=== PATIENT | male | born 1955 | race Caucasian/White ===

== ENCOUNTER → 2021-07-16 11:15 | Outpatient (CLI) | payer MEDICARE, OTHER, SELFPAY ==
[2021-07-16 12:53] LABS: COVID19 -Nasal RAPID Negative (Negative)
== END ==
PROVIDERS: Family Provider Family Medicine; PCP Physician Assistant Medical; Visit Provider Physical Medicine & Rehabilitation
DX: Z20.822 Contact with and (suspected) exposure to COVID-19 (principal)
CPT/HCPCS: 87635; C9803

== ENCOUNTER 2021-07-17 12:57 | Outpatient (CLI) | payer MEDICARE, OTHER, SELFPAY ==
[2021-07-17] VITALS (7 sets, daily range): BP systolic 106–129; BP diastolic 64–92; PULSE 81–127; RESP 15–20; O2SAT 95–99
--- NOTE | 2021-07-17 13:02 | DI.RAD.S_ITS ---
PROCEDURE: PAIN L INTERLAMINAR/CAUDAL INJ INDICATIONS: SPONDYLOSIS COMPARISON: [facility], [facility], MRI L-SPINE W/O CONTRAST, 06/18/2021, 15:26. FINDINGS: Fluoroscopic spot filming was performed to verify placement of a spinal needle at the L5-S1 level, as labeled on the films. Appropriate location of the needle tip was confirmed by injection of iodinated contrast. IMPRESSION: No significant intraprocedural abnormality. Dictated by: Kentrell Perez M.D. on 07/17/2021 at 13:48 Approved by: Kentrell Perez M.D. on 07/17/2021 at 13:48
[2021-07-17] MEDS: MIDAZOLAM 2 MG/2 ML VIAL IV (13:52)
[2021-07-17] MEDS: IOPAMIDOL 15 ML VIAL 3 ML INJ (13:57)
[2021-07-17] MEDS: BUPIVACAINE 0.25% (PF) VIAL 2 ML INJ (13:57)
[2021-07-17] MEDS: BETAMETHASONE 30 MG/5 ML MDV 6 MG INJ (13:58)
[2021-07-17] MEDS: DEXAMETHASONE 10 MG/ML VIAL 20 MG INJ (13:58)
--- NOTE | 2021-07-17 14:03 | PM.PROC.IR.1 ---
Date/Time/Diagnoses Date of procedure: 07/17/21 Time of procedure: 14:03 Pre-procedure diagnosis: 1. HNP WITH RADICULAR FEATURES, 2. MULTILEVEL CENTRAL STENOSIS, Post-procedure diagnosis: same Procedure Notes Procedure: 1. FLUOROSCOPICALLY GUIDED CONTRAST CONTROLLED INTERLAMINAR EPIDURAL STEROID INJECTION - L5/S1 Indications: The patient is referred by for treatment of Bilateral Foraminal Stenosis L>R LE symptoms. Physician: Edward Granados Total Fluoroscopy time (seconds): 5 Total sedation minutes: 8 Complications: none Procedure in detail & Post-procedure care: FINDINGS Multilevel Central Spinal Stenosis with Nerve Root Compression DESCRIPTION OF PROCEDURE Fluoroscopically guided, contrast-controlled L5/S1 translaminar epidural steroid injection. Following review of allergy and review of potential side effects and complications, including, but not necessarily limited to, infection, allergic reaction, local tissue breakdown, temporary as well as permanent nerve injury, paralysis, stroke and possible , the patient indicated that the patient understood and agreed to proceed. An informed consent document was signed by the patient, witnessed by a nurse, and placed in the patient's chart. Additionally, other treatment options including modalities, medications, and physical therapy were reviewed with the patient. After review of previous anaesthesic history and IV conscious sedation the patient was deemed safe to proceed with today?s procedure with IV conscious sedation as ASA class II designation. Safety time-out was performed to confirm patient ID, procedure to be performed and site of procedure. IV sedation was accomplished with a combination of 2mg of Versed administered by the RN after DO order, titrated to patient comfort during the course of the procedure while the patient remained responsive to all verbal commands. In the prone position, following sterile prep and drape of the lumbar region, the L5/S1 translaminar space was identified fluoroscopically. The skin was anesthetized via a 25-gauge, 1.5-inch needle with 1% lidocaine solution. At this point, a 22-gauge short bevel spinal needle was atraumatically introduced and advanced under fluoroscopic guidance into the region of the L5/S1 translaminar space. Depth was confirmed on lateral view. Radiological data, including multiple fluoroscopic views of the lumbar spine, reveal a spinal needle at the L5/S1 translaminar space. Lateral views then show placement of the needle in the epidural space. Subsequent views show contrast material flowing superiorly and inferiorly in the epidural space. No vascular or intrathecal uptake is observed. At this point, using loss of resistance technique with saline and air, the epidural space was entered. This was confirmed following negative aspiration with injection of approximately 1.5cc of Isovue 200, showing excellent epidural flow without vascular or intrathecal uptake. At this point, 1 cc of 1% lidocaine solution combined with 3cc or 20mg of dexamethasone and 6mg of betamethasone was injected without incident. The patent tolerated the procedure without signs of symptoms of complications prior to transfer to the recovery area for further monitoring. The patient was then transferred to the recovery area where they were observed for an appropriate period of time after the injection. The patient reported a VAS score of 6 prior to the procedure and a post-procedure VAS of 0. POST OP INSTRUCTIONS The patient was provided a Pain Log to continue to record their response to the target-specific procedure prior to follow-up visit with their referring physician. Additionally, specific post-injection care instructions and a contact number to our office were provided if concerns arise regarding possible complications associated with the procedure are suspected.
--- NOTE | 2021-07-17 14:12 | PC.NURSE ---
Patient noted to be in a Rapid Afib upon pre-sedation vital signs. HR variable 103-141 non sustaining. Patient denies symptoms besides having a headache which he reports he experiences with rapid Afib. BP stable. Denies CP/SOB. Dr. Granados made aware. Patient reports he is out of his Metoprolol and that it is supposed to arrive by mail today. Patient HR during procedure down to 93-135. BP remained stable and patient without complaints. Care given over to GISSELL Arnold in pre-post with patient in NAD. Patient advised to take his regularly prescribed metoprolol once he gets home and to seek further care if it does not arrive or if his symptoms progress. Patient verbalized understanding.
--- NOTE | 2021-07-17 16:45 | PC.NURSE ---
Pt went into rapid afib in the procedure room. Dr. Granados aware. New onset of afib, pt states no prior diagnosis. Pt vitals stable otherwise, refer to worklist. Pt has been diagnosed with PVC's before but did not take his metoprolol this morning. Explained risks of afib and give information to his prior to discharge. Discharge was confirmed by Dr. Granados for pt to go home. Pt has an appt with primary care already scheduled for this Friday. Informed pt to go to the ER if condition changes and to take his regularly scheduled metoprolol when he gets home.
== END 2021-07-17 14:35 | disposition home or self-care (01) ==
PROVIDERS: Family Provider Family Medicine; PCP Physician Assistant Medical; Referring Provider Physical Medicine & Rehabilitation; Visit Provider Physical Medicine & Rehabilitation
DX: M51.17 Intervertebral disc disorders with radiculopathy, lumbosacral region (principal); M48.07 Spinal stenosis, lumbosacral region
CPT/HCPCS: 62323; J0702; J1100; J2250

== ENCOUNTER → 2021-11-12 13:03 | Outpatient (CLI) | payer MEDICARE, OTHER, SELFPAY ==
[2021-11-12 16:39] LABS: COVID19 -Nasal RAPID Negative (Negative)
== END ==
PROVIDERS: Family Provider Family Medicine; PCP Physician Assistant Medical; Visit Provider Physical Medicine & Rehabilitation
DX: Z20.822 Contact with and (suspected) exposure to COVID-19 (principal)
CPT/HCPCS: 87635; C9803

== ENCOUNTER 2021-11-13 15:00 | Outpatient (CLI) | payer MEDICARE, OTHER, SELFPAY ==
[2021-11-13] VITALS (7 sets, daily range): BP systolic 89–120; BP diastolic 50–77; PULSE 61–77; RESP 10–18; TEMP 36.3; O2SAT 93–98
--- NOTE | 2021-11-13 15:01 | DI.RAD.S_ITS ---
PROCEDURE: PAIN L/S TRANSFORAMINAL INJECT INDICATIONS: SPONDYLOSIS COMPARISON: [facility], CR, XR LUMBAR SPINE WITH OLBIQUES PLUS FLEXION EXTENSION, 06/19/2020, 16:26. [facility], [facility], MRI L-SPINE W/O CONTRAST, 06/18/2021, 15:26. FINDINGS: Fluoroscopic spot filming was performed to verify placement of spinal needles at the L5-S1 level(s), as labeled on the films. Appropriate location(s) of the needle tip(s) was confirmed by injection of iodinated contrast. IMPRESSION: Fluoroscopy for pain management. Dictated by: Edwin Justin M.D. on 11/13/2021 at 17:20 Approved by: Edwin Justin M.D. on 11/13/2021 at 17:21
[2021-11-13] MEDS: MIDAZOLAM 2 MG/2 ML VIAL IV (15:58)
[2021-11-13] MEDS: IOPAMIDOL 15 ML VIAL 3 ML INJ (16:01)
[2021-11-13] MEDS: BUPIVACAINE 0.25% (PF) VIAL 2 ML INJ (16:01)
[2021-11-13] MEDS: BETAMETHASONE 30 MG/5 ML MDV 6 MG INJ (16:02)
[2021-11-13] MEDS: DEXAMETHASONE 10 MG/ML VIAL 20 MG INJ (16:02)
--- NOTE | 2021-11-13 16:19 | P.PCN_ITS ---
Date/Time/Diagnoses Date of procedure: 11/13/21 Time of procedure: 16:19 Pre-procedure diagnosis: FORAMINAL STENOSIS WITH LE SYMPTOMS Post-procedure diagnosis: same Procedure Notes Procedure: 1. FLUOROSCOPICALLY GUIDED CONTRAST CONTROLLED TRANSFORAMINAL EPIDURAL STEROID INJECTION - RIGHT L5/S1 TFESI Indications: Derrick is referred by RACHEL Solitario for treatment of Foraminal Stenosis with Right LE Symptoms Physician: Edward Granados Total Fluoroscopy time (seconds): 17 Total sedation minutes: 14 Complications: none Procedure in detail & Post-procedure care: FINDINGS Foraminal Nerve Root Compression secondary to disc disease and facet hypertrophy DESCRIPTION OF PROCEDURE Following review of allergy and review of potential side effects and complications, including, but not necessarily limited to, infection, allergic re action, local tissue breakdown, stroke, temporary or permanent nerve injury, paralysis, and possible , the patient indicated that the patient understood and agreed to proceed. An informed consent document was signed by the patient, witnessed by a nurse, and placed in the patient's chart. Additionally, other treatment options including medications, modalities, and physical therapy were reviewed with the patient. After review of previous anaesthesic history and IV conscious sedation the patient was deemed safe to proceed with today?s procedure with IV conscious sedation as ASA class II designation. Safety time-out was performed to confirm patient ID, procedure to be performed and site of procedure. IV sedation was accomplished with a combination of 2mg of Versed was administered by the RN after DO order, titrated to patient comfort during the course of the procedure while the patient remained responsive to all verbal commands In the prone position following sterile prep and drape of the lumbar region, the right L5/S1 posterior neuroforamen was identified fluoroscopically. The skin was anesthetized via a 25-gauge 1.5-inch needle with 1% lidocaine solution. At this point, a 25-gauge 3.5-inch spinal needle was atraumatically introduced and advanced under fluoroscopic guidance through the posterior right L5/S1 neuroforamen to approximately the anterior aspect of the canal. Depth was confirmed on lateral view. Following negative aspiration, injection of approximately 1.5cc of Isovue 200 under live fluoroscopy in the AP view confirmed excellent flow along the nerve root, into the epidural space without vascular or intrathecal uptake observed Radiological data, including multiple fluoroscopic views of the lumbosacral spine, reveal a spinal needle at the right L5/S1 posterior neuroforamen. Subsequent views show flow of contrast material flowing superiorly and inferiorly along the nerve root confirming epidural flow. Subsequently, a test dose of 1.5 cc of 1% lidocaine solution was administered and patient was observed for two minutes for signs or symptoms of complications, including abdominal pain, shortness of breath, bilateral upper or lower extrem ity weakness, nausea and vomiting, prior to steroid injection. At this point, a total of 3cc or 20mg of dexamethasone and 6mg of betamethasone was injected without incident. The procedure tolerated the procedure well without signs or symptoms of complications prior to transfer to the recovery area continued monitoring without incident. The patient was then transferred to the recovery area where they were observed for an appropriate time after the injection. The patient reported a VAS score of 7 prior to the procedure and a post- procedure VAS of 0. POST OP INSTRUCTIONS The patient was provided a Pain Log to continue to record their response to the target-specific procedure prior to follow-up visit with their referring physician. Additionally, specific post-injection care instructions and a contact number to our office were provided if concerns arise regarding possible complications associated with the procedure are suspected.
== END 2021-11-13 16:34 | disposition home or self-care (01) ==
PROVIDERS: Family Provider Family Medicine; PCP Physician Assistant Medical; Referring Provider Physical Medicine & Rehabilitation; Visit Provider Physical Medicine & Rehabilitation
DX: M48.07 Spinal stenosis, lumbosacral region; M51.17 Intervertebral disc disorders with radiculopathy, lumbosacral region
CPT/HCPCS: 64483; 99152; J0702; J1100; J2250; J3490

== ENCOUNTER → 2022-09-04 13:00 | Outpatient (CLI) | payer MEDICARE, OTHER, SELFPAY ==
--- NOTE | 2022-09-04 13:02 | DI.RAD.S_ITS ---
PROCEDURE: XR KNEE RT 3V INDICATIONS: knee replacement with pain TECHNIQUE: 3 views of the knee were acquired. COMPARISON: None. FINDINGS: Bones: No fractures or dislocations. No suspicious bony lesions. Expected postoperative appearance of a unicompartmental tibiofemoral arthroplasty. Soft tissues: No joint effusion. No suspicious soft tissue calcifications. IMPRESSION: Expected postoperative appearance of a unicompartmental tibiofemoral arthroplasty. Dictated by: Asher Quevedo M.D. on 09/04/2022 at 14:04 Approved by: Asher Quevedo M.D. on 09/04/2022 at 14:04
--- NOTE | 2022-09-04 13:02 | DI.RAD.S_ITS ---
PROCEDURE: XR KNEE LT 3V INDICATIONS: knee replacement with pain TECHNIQUE: 3 views of the knee were acquired. COMPARISON: None. FINDINGS: Bones: No fractures or dislocations. No suspicious bony lesions. Well-aligned, intact arthroplasty without hardware complication. Soft tissues: No joint effusion. No suspicious soft tissue calcifications. IMPRESSION: Well-aligned, intact left total knee arthroplasty without hardware complication. Dictated by: Asher Quevedo M.D. on 09/04/2022 at 14:04 Approved by: Asher Quevedo M.D. on 09/04/2022 at 14:05
== END ==
PROVIDERS: Family Provider Family Medicine; PCP Physician Assistant Medical; Referring Provider Physical Medicine & Rehabilitation; Visit Provider Physical Medicine & Rehabilitation
DX: M25.561 Pain in right knee (principal); M25.562 Pain in left knee; I48.20 Chronic atrial fibrillation, unspecified; G43.719 Chronic migraine without aura, intractable, without status migrainosus; G44.021 Chronic cluster headache, intractable; M51.27 Other intervertebral disc displacement, lumbosacral region; M47.816 Spondylosis without myelopathy or radiculopathy, lumbar region; Z96.653 Presence of artificial knee joint, bilateral; Z95.5 Presence of coronary angioplasty implant and graft; Z79.01 Long term (current) use of anticoagulants
CPT/HCPCS: 73562; 99215

== ENCOUNTER 2022-09-17 13:10 | Outpatient (CLI) | payer MEDICARE, OTHER, SELFPAY ==
[2022-09-17] VITALS (8 sets, daily range): BP systolic 104–139; BP diastolic 62–98; PULSE 72–109; RESP 14–18; TEMP 36.3; O2SAT 93–96
--- NOTE | 2022-09-17 13:15 | DI.RAD.S_ITS ---
PROCEDURE: PAIN L/S TRANSFORAMINAL INJECT INDICATIONS: SPONDYLOSIS COMPARISON: [facility], , PAIN L/S TRANSFORAMINAL INJECT, 11/13/2021, 16:01. FINDINGS: Fluoroscopic spot filming was performed to verify placement of spinal needles at the right L5-S1 neural foramen level(s), as labeled on the films. Appropriate location(s) of the needle tip(s) was confirmed by injection of iodinated contrast. IMPRESSION: Access needle at the right L5-S1 neural foramen for transforaminal epidural steroid injection. Dictated by: Ileana Rodríguez MD, PhD on 09/17/2022 at 15:01 Approved by: Ileana Rodríguez MD, PhD on 09/17/2022 at 15:02
[2022-09-17] MEDS: MIDAZOLAM 2 MG/2 ML VIAL IV (14:05)
[2022-09-17] MEDS: IOPAMIDOL 15 ML VIAL 3 ML INJ (14:14)
[2022-09-17] MEDS: DEXAMETHASONE 10 MG/ML VIAL 20 MG INJ (14:14)
[2022-09-17] MEDS: BETAMETHASONE 30 MG/5 ML MDV 6 MG INJ (14:14)
[2022-09-17] MEDS: BUPIVACAINE 0.25% (PF) VIAL 2 ML SUBCUT (14:14)
--- NOTE | 2022-09-17 14:25 | P.PCN_ITS ---
Date/Time/Diagnoses Date of procedure: 09/17/22 Time of procedure: 14:25 Pre-procedure diagnosis: FORAMINAL STENOSIS WITH LE SYMPTOMS Post-procedure diagnosis: same Procedure Notes Procedure: 1. FLUOROSCOPICALLY GUIDED CONTRAST CONTROLLED TRANSFORAMINAL EPIDURAL STEROID INJECTION - RIGHT L5/S1 TFESI Indications: Derrick is referred by ANDRE Solitario for treatment of Foraminal Stenosis with Right LE Symptoms Physician: Edward Granados Total Fluoroscopy time (seconds): 16 Total sedation minutes: 15 Complications: none Procedure in detail & Post-procedure care: FINDINGS Foraminal Nerve Root Compression secondary to disc disease and facet hypertrophy DESCRIPTION OF PROCEDURE Following review of allergy and review of potential side effects and complications, including, but not necessarily limited to, infection, allergic r eaction, local tissue breakdown, stroke, temporary or permanent nerve injury, paralysis, and possible , the patient indicated that the patient understood and agreed to proceed. An informed consent document was signed by the patient, witnessed by a nurse, and placed in the patient's chart. Additionally, other treatment options including medications, modalities, and physical therapy were reviewed with the patient. After review of previous anaesthesic history and IV conscious sedation the patient was deemed safe to proceed with today?s procedure with IV conscious sedation as ASA class II designation. Safety time-out was performed to confirm patient ID, procedure to be performed and site of procedure. IV sedation was accomplished with a combination of 2mg of Versed was administered by the RN after DO order, titrated to patient comfort during the course of the procedure while the patient remained responsive to all verbal commands In the prone position following sterile prep and drape of the lumbar region, the right L5/S1 posterior neuroforamen was identified fluoroscopically. The skin was anesthetized via a 25-gauge 1.5-inch needle with 1% lidocaine solution. At this point, a 25-gauge 3.5-inch spinal needle was atraumatically introduced and advanced under fluoroscopic guidance through the posterior right L5/S1 neuroforamen to approximately the anterior aspect of the canal. Depth was confirmed on lateral view. Following negative aspiration, injection of approximately 1.5cc of Isovue 200 under live fluoroscopy in the AP view confirmed excellent flow along the nerve root, into the epidural space without vascular or intrathecal uptake observed Radiological data, including multiple fluoroscopic views of the lumbosacral spine, reveal a spinal needle at the right L5/S1 posterior neuroforamen. Subsequent views show flow of contrast material flowing superiorly and inferiorly along the nerve root confirming epidural flow. Subsequently, a test dose of 1.5 cc of 1% lidocaine solution was administered and patient was observed for two minutes for signs or symptoms of complications, including abdominal pain, shortness of breath, bilateral upper or lower extre mity weakness, nausea and vomiting, prior to steroid injection. At this point, a total of 3cc or 20mg of dexamethasone and 6mg of betamethasone was injected without incident. The procedure tolerated the procedure well without signs or symptoms of complications prior to transfer to the recovery area continued monitoring without incident. The patient was then transferred to the recovery area where they were observed for an appropriate time after the injection. The patient reported a VAS score of 7 prior to the procedure and a post- procedure VAS of 0. POST OP INSTRUCTIONS The patient was provided a Pain Log to continue to record their response to the target-specific procedure prior to follow-up visit with their referring physician. Additionally, specific post-injection care instructions and a contact number to our office were provided if concerns arise regarding possible complications associated with the procedure are suspected.
== END 2022-09-17 14:45 | disposition home or self-care (01) ==
PROVIDERS: Family Provider Family Medicine; PCP Physician Assistant Medical; Referring Provider Physical Medicine & Rehabilitation; Visit Provider Physical Medicine & Rehabilitation
DX: M48.07 Spinal stenosis, lumbosacral region (principal); M51.17 Intervertebral disc disorders with radiculopathy, lumbosacral region; M47.27 Other spondylosis with radiculopathy, lumbosacral region
CPT/HCPCS: 64483; 99152; J0702; J1100; J2250; J3490

== ENCOUNTER 2022-12-24 09:09 | Outpatient (CLI) | payer MEDICARE, OTHER, SELFPAY ==
[2022-12-24] VITALS (9 sets, daily range): BP systolic 112–154; BP diastolic 56–100; PULSE 59–126; RESP 10–20; TEMP 36.2; O2SAT 94–97
--- NOTE | 2022-12-24 09:11 | DI.RAD.S_ITS ---
PROCEDURE: PAIN GENICULAR NERVE BLOCK LT INDICATIONS: LEFT KNEE PAIN COMPARISON: None. FINDINGS: Fluoroscopic spot filming was performed to verify placement of spinal needles at the lateral and medial left knee level(s), as labeled on the films. Appropriate location(s) of the needle tip(s) was confirmed by injection of iodinated contrast. IMPRESSION: Access needles positioned for left knee genicular nerve block. Dictated by: Ileana Rodríguez MD, PhD on 12/24/2022 at 13:19 Approved by: Ileana Rodríguez MD, PhD on 12/24/2022 at 13:20
[2022-12-24] MEDS: MIDAZOLAM 2 MG/2 ML VIAL IV (10:31)
[2022-12-24] MEDS: LIDOCAINE 1% 20 ML 5 ML INJ (10:37)
[2022-12-24] MEDS: BUPIVACAINE 0.5% (PF) 10 ML VIAL 5 ML INJ (10:38)
[2022-12-24] MEDS: iopamidoL 15 ML VIAL 3 ML INJ (10:38)
--- NOTE | 2022-12-24 10:51 | P.PCN_ITS ---
Date/Time/Diagnoses Date of procedure: 12/24/22 Time of procedure: 10:51 Pre-procedure diagnosis: 1. Chronic knee pain Post-procedure diagnosis: same Procedure Notes Procedure: 1. Geniculate nerve blocks including superior lateral and medial as well as inferior medial nerve blocks Indications: Derrick is referred by ANDRE Solitario for treatment of chronic knee pain. Physician: Edward Granados Total Fluoroscopy time (seconds): 13 Total sedation minutes: 15 Complications: none Procedure in detail & Post-procedure care: DESCRIPTION OF PROCEDURE Fluoroscopically guided, contrast-controlled superior lateral, superior medial and inferior medial geniculate blocks with 2cc of 0.5% Marcaine. Following review of allergy and review of potential side effects and complications, including, but not necessarily limited to, infection, allergic reaction, local tissue breakdown, nerve injury, paralysis, stroke and possible , the patient indicated that the patient understood and agreed to proceed. An informed consent document was signed by the patient, witnessed by a nurse, and placed in the patient's chart. After review of previous anaesthesic history and IV conscious sedation the patient was deemed safe to proceed with today?s procedure with IV conscious sedation as ASA class II designation. Safety time-out was performed to confirm patient ID, procedure to be performed and site of procedure. IV sedation was accomplished with a combination of 3mg of Versed was administered by the RN after DO order, titrated to patient comfort during the course of the procedure while the patient remained responsive to all verbal commands A time-out was taken to identify the correct patient, procedure and side prior to starting the procedure. With the patient lying in the supine position, the patient was prepped and draped in usual sterile fashion using chlorhexadine scrub and a fenestrated drape. Local anesthetic was given by raising a skin wheal and going down to the hub of a 25 gauge 1/2 inch needle. In an AP fluoroscopic view, a 20 gauge needle with was introduced through the anesthetic skin and down to the junction of the femoral diaphysis and the medial femoral condyle, then another needle to the femoral diaphysis on the lateral femoral condyle and the 3rd medial to the tibial diaphysis and the medial tibial condyle. Place of the of all 3 needles was confirmed with lateral fluoroscopic view. After negative aspirate to make sure there was no intravascular placement, trace contrast was infiltrated to confirm neurogram as well as lack of vascular uptake. After placement, 2mL of 0.5% Marcaine was injected slowly and each of the 3 sites without incident. The needle was withdrawn and sites cleaned and dressed. The patient tolerated the procedure well without signs or symptoms of complications. The patient tolerated the procedure well without signs or symptoms of complications prior to transfer to the recovery area continued monitoring without incident. Post-procedure, the patient was monitored initiating provocative activities to measure the amount of relief from her chronic knee pain. The patient reported a VAS of 7 prior to the procedure and a post-procedure VAS of 1. POST OP INSTRUCTIONS The patient was provided with a Pain Log to complete over the next several hours and subsequent days prior to the patient's follow up with the ordering physician. If the patient has mobile mechanic relief to the solution applied, then they may be a candidate for geniculate nerve radiofrequency ablation. The patient is aware, was provided, once again, with a Pain Log and will follow up with the referring physician for review and clinical correlation.
== END 2022-12-24 11:05 | disposition home or self-care (01) ==
LOC: RAD 09:10
PROVIDERS: Family Provider Family Medicine; PCP Physician Assistant Medical; Referring Provider Physical Medicine & Rehabilitation; Visit Provider Physical Medicine & Rehabilitation
DX: M25.562 Pain in left knee (principal); G89.29 Other chronic pain
CPT/HCPCS: 64454; 99152; J2250

== ENCOUNTER → 2023-08-06 13:40 | Outpatient (CLI) | payer MEDICARE, OTHER, SELFPAY ==
--- NOTE | 2023-08-06 13:41 | DI.RAD.S_ITS ---
PROCEDURE: XR LUMBAR SPINE MIN 4V INDICATIONS: BACK PAIN TECHNIQUE: 5 views of the lumbar spine were acquired, including bilateral oblique views. COMPARISON: None. FINDINGS: Bones: 5 nonrib-bearing vertebrae are present. There is normal bony alignment. There is multilevel facet arthropathy, worse at L4-5 and L5-S1. Multilevel disc height loss with degenerative endplate changes and spurring is present. This is severe at L5-S1. No vertebral body compression fractures. No suspicious bony lesions. Soft tissues: Overlying bowel gas pattern is normal. No suspicious soft tissue calcifications. Atherosclerotic vascular calcifications. Oblique images: No pars defects. IMPRESSION: Severe degenerative changes at L5-S1, mild degenerative changes at other levels. Dictated by: Steve Amaya M.D. on 08/06/2023 at 14:20 Approved by: Steve Amaya M.D. on 08/06/2023 at 14:21
== END ==
PROVIDERS: Family Provider Family Medicine; PCP Physician Assistant Medical; Referring Provider Physical Medicine & Rehabilitation; Visit Provider Physical Medicine & Rehabilitation
DX: M47.816 Spondylosis without myelopathy or radiculopathy, lumbar region (principal); M47.817 Spondylosis without myelopathy or radiculopathy, lumbosacral region; M51.27 Other intervertebral disc displacement, lumbosacral region
CPT/HCPCS: 72110

== ENCOUNTER 2023-09-11 13:59 | Outpatient (CLI) | payer MEDICARE, OTHER, SELFPAY ==
[2023-09-11] VITALS (8 sets, daily range): BP systolic 100–126; BP diastolic 69–80; PULSE 64–71; RESP 12–18; TEMP 36.4; O2SAT 92–95
--- NOTE | 2023-09-11 14:30 | DI.RAD.S_ITS ---
PROCEDURE: PAIN L/SI FACET INJ/BLK 1STL INDICATIONS: RIGHT L4, L5, S1 MBB-LA COMPARISON: [facility], CR, XR LUMBAR SPINE MIN 4V, 08/06/2023, 13:45. FINDINGS: Fluoroscopic spot filming was performed to verify placement of spinal needles at the right L4, L5, S1 level(s), as labeled on the films. Appropriate location(s) of the needle tip(s) was confirmed by injection of iodinated contrast. IMPRESSION: Intraoperative guidance provided. Dictated by: Levi Marcial M.D. on 09/11/2023 at 19:57 Approved by: Levi Marcial M.D. on 09/11/2023 at 19:58
[2023-09-11] MEDS: MIDAZOLAM 2 MG/2 ML VIAL IV (14:47)
[2023-09-11] MEDS: iopamidoL 15 ML VIAL 3 ML INJ (14:52)
[2023-09-11] MEDS: LIDOCAINE 1% 20 ML INJ (14:53)
[2023-09-11] MEDS: BUPIVACAINE 0.5% (PF) 10 ML VIAL 2 ML INJ (14:56)
--- NOTE | 2023-09-11 15:04 | P.PCN_ITS ---
Date/Time/Diagnoses Date of procedure: 09/11/23 Time of procedure: 15:04 Pre-procedure diagnosis: 1. FACET ARTHROPATHY Post-procedure diagnosis: same Procedure Notes Procedure: 1. Right L4, L5 and S1 MB BLOCKS LA Indications: Derrick is referred by RACHEL Solitario for treatment of Right Axial LBP. Physician: Edward Granados Total Fluoroscopy time (seconds): 5 Total sedation minutes: 11 Complications: none Procedure in detail & Post-procedure care: DESCRIPTION OF PROCEDURE Fluoroscopically guided, contrast-controlled right L4, L5 and S1 medial branch blocks with 0.5cc of 0.5% Marcaine. Following review of allergy and review of potential side effects and complications, including, but not necessarily limited to, infection, allergic reaction, local tissue breakdown, nerve injury, paralysis, stroke and possible , the patient indicated that the patient understood and agreed to proceed. An informed consent document was signed by the patient, witnessed by a nurse, and placed in the patient's chart. After review of previous anaesthesic history and IV conscious sedation the patient was deemed safe to proceed with today?s procedure with IV conscious sedation as ASA class II designation. Safety time-out was performed to confirm patient ID, procedure to be performed and site of procedure. IV sedation was accomplished with a combination of 2mg of Versed was administered by the RN after DO order, titrated to patient comfort during the course of the procedure while the patient remained responsive to all verbal commands In the prone position, following sterile prep and drape of the lumbar region, the right L4, L5 and S1 anatomical location of the medial branch of the dorsal ramus was identified fluoroscopically. Subsequently an anesthetic skin wheal using 1% lidocaine solution was initiated at each of the anatomical spots. Subsequently then a 22-gauge 3.5-inch spinal needle was atraumatically introduced and advanced under fluoroscopic guidance at each of the corresponding sites at the right L4, L5 and S1 MB. After negative aspiration, 0.2 cc of Isovue 200 was injected, confirming placement without vascular or intrathecal uptake. Subsequently then 0.5 cc of 0.5% Marcaine solution was injected at each of the corresponding sites at the right L4, L5 and S1 medial branch locations. The patient tolerated the procedure well without signs or symptoms of complications. The procedure tolerated the procedure well without signs or symptoms of complications prior to transfer to the recovery area continued monitoring without incident. Post-procedure, the patient was monitored initiating provocative activities to measure the amount of relief from block of the facetogenic pain. The patient reported a VAS of 7 prior to the procedure and a post-procedure VAS of 1. It has been a pleasure to assist in the diagnostic and therapeutic care of your patient. POST OP INSTRUCTIONS The patient was provided with a Pain Log to complete over the next several hours and subsequent days prior to the patient's follow up with the ordering physician. 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 The patient is aware, was provided, once again, with a Pain Log and will follow up with the referring physician for review and clinical correlation.
== END 2023-09-11 15:20 | disposition home or self-care (01) ==
LOC: RAD 14:01
PROVIDERS: Family Provider Family Medicine; PCP Physician Assistant Medical; Referring Provider Physical Medicine & Rehabilitation; Visit Provider Physical Medicine & Rehabilitation
DX: M47.816 Spondylosis without myelopathy or radiculopathy, lumbar region (principal); M47.817 Spondylosis without myelopathy or radiculopathy, lumbosacral region
CPT/HCPCS: 64493; 64494; 99152; J2250

== ENCOUNTER 2024-03-23 10:05 | Outpatient (CLI) | payer MEDICARE, OTHER, SELFPAY ==
[2024-03-23] VITALS (8 sets, daily range): BP systolic 116–134; BP diastolic 65–78; PULSE 47–54; RESP 14–19; TEMP 36.6; O2SAT 94–97
--- NOTE | 2024-03-23 10:57 | DI.RAD.S_ITS ---
PROCEDURE: PAIN L/S TRANSFORAMINAL INJECT INDICATIONS: Right L5/S1 TFESI COMPARISON: [facility], , PAIN L/S TRANSFORAMINAL INJECT, 09/17/2022, 14:08. FINDINGS/IMPRESSION: Fluoroscopic spot filming was performed to verify placement of spinal needles at the right L5-S1 level(s), as labeled on the films. Appropriate location(s) of the needle tip(s) was confirmed by injection of iodinated contrast. Dictated by: Steve Amaya M.D. on 03/23/2024 at 14:54 Approved by: Steve Amaya M.D. on 03/23/2024 at 14:54
[2024-03-23] MEDS: MIDAZOLAM 2 MG/2 ML VIAL IV (11:35)
[2024-03-23] MEDS: BETAMETHASONE 30 MG/5 ML MDV 12 MG INJ (11:41)
[2024-03-23] MEDS: DEXAMETHASONE 10 MG/ML VIAL INJ (11:41)
[2024-03-23] MEDS: BUPIVACAINE 0.25% (PF) VIAL 2 ML INJ (11:41)
[2024-03-23] MEDS: iopamidoL 15 ML VIAL 3 ML INJ (11:42)
--- NOTE | 2024-03-23 11:51 | P.PCN_ITS ---
Date/Time/Diagnoses Date of procedure: 03/23/24 Time of procedure: 11:51 Pre-procedure diagnosis: FORAMINAL STENOSIS WITH LE SYMPTOMS Post-procedure diagnosis: same Procedure Notes Procedure: 1. FLUOROSCOPICALLY GUIDED CONTRAST CONTROLLED TRANSFORAMINAL EPIDURAL STEROID INJECTION - RIGHT L5/S1 TFESI Indications: Derrick is referred by ANDRE Solitario for treatment of Foraminal Stenosis with Right LE Symptoms Physician: Edward Granados Total Fluoroscopy time (seconds): 9 Total sedation minutes: 14 Complications: none Procedure in detail & Post-procedure care: FINDINGS Foraminal Nerve Root Compression secondary to disc disease and facet hypertrophy DESCRIPTION OF PROCEDURE Following review of allergy and review of potential side effects and complications, including, but not necessarily limited to, infection, allergic re action, local tissue breakdown, stroke, temporary or permanent nerve injury, paralysis, and possible , the patient indicated that the patient understood and agreed to proceed. An informed consent document was signed by the patient, witnessed by a nurse, and placed in the patient's chart. Additionally, other treatment options including medications, modalities, and physical therapy were reviewed with the patient. After review of previous anaesthesic history and IV conscious sedation the patient was deemed safe to proceed with today?s procedure with IV conscious sedation as ASA class II designation. Safety time-out was performed to confirm patient ID, procedure to be performed and site of procedure. IV sedation was accomplished with a combination of 2mg of Versed was administered by the RN after DO order, titrated to patient comfort during the course of the procedure while the patient remained responsive to all verbal commands In the prone position following sterile prep and drape of the lumbar region, the right L5/S1 posterior neuroforamen was identified fluoroscopically. The skin was anesthetized via a 25-gauge 1.5-inch needle with 1% lidocaine solution. At this point, a 25-gauge 3.5-inch spinal needle was atraumatically introduced and advanced under fluoroscopic guidance through the posterior right L5/S1 neuroforamen to approximately the anterior aspect of the canal. Depth was confirmed on lateral view. Following negative aspiration, injection of approximately 1.5cc of Isovue 200 under live fluoroscopy in the AP view confirmed excellent flow along the nerve root, into the epidural space without vascular or intrathecal uptake observed Radiological data, including multiple fluoroscopic views of the lumbosacral spine, reveal a spinal needle at the right L5/S1 posterior neuroforamen. Subsequent views show flow of contrast material flowing superiorly and inferiorly along the nerve root confirming epidural flow. Subsequently, a test dose of 1.5 cc of 1% lidocaine solution was administered and patient was observed for two minutes for signs or symptoms of complications, including abdominal pain, shortness of breath, bilateral upper or lower extrem ity weakness, nausea and vomiting, prior to steroid injection. At this point, a total of 2cc or 10mg of dexamethasone and 6mg of betamethasone was injected without incident. The procedure tolerated the procedure well without signs or symptoms of complications prior to transfer to the recovery area continued monitoring without incident. The patient was then transferred to the recovery area where they were observed for an appropriate time after the injection. The patient reported a VAS score of 7 prior to the procedure and a post- procedure VAS of 0. POST OP INSTRUCTIONS The patient was provided a Pain Log to continue to record their response to the target-specific procedure prior to follow-up visit with their referring physician. Additionally, specific post-injection care instructions and a contact number to our office were provided if concerns arise regarding possible complications associated with the procedure are suspected.
== END 2024-03-23 12:10 | disposition home or self-care (01) ==
PROVIDERS: Family Provider Family Medicine; PCP Physician Assistant Medical; Referring Provider Physical Medicine & Rehabilitation; Visit Provider Physical Medicine & Rehabilitation
DX: M48.07 Spinal stenosis, lumbosacral region (principal); M51.17 Intervertebral disc disorders with radiculopathy, lumbosacral region; M47.27 Other spondylosis with radiculopathy, lumbosacral region
CPT/HCPCS: 64483; 99152; J0702; J1100; J2250; J3490

== ENCOUNTER 2024-11-18 09:56 | Outpatient (CLI) | payer MEDICARE, OTHER, SELFPAY ==
[2024-11-18] VITALS (8 sets, daily range): BP systolic 93–140; BP diastolic 53–75; PULSE 44–53; RESP 14–20; O2SAT 93–96
[2024-11-18] MEDS: MIDAZOLAM 2 MG/2 ML VIAL IV (11:43)
[2024-11-18] MEDS: LIDOCAINE 2% INJ MDV 20ML 5 ML INJ (11:47)
--- NOTE | 2024-11-18 11:59 | P.PCN_ITS ---
Date/Time/Diagnoses Date of procedure: 11/18/24 Time of procedure: 11:59 Pre-procedure diagnosis: Lumbar Facet Arthropathy Post-procedure diagnosis: same Procedure Notes Procedure: 1. Right L4, L5 and S1 MB BLOCKS SA Indications: Derrick is referred by ANDRE Solitario for treatment of Right Axial LBP. Physician: Edward Granados Total Fluoroscopy time (seconds): 4 Total sedation minutes: 10 Complications: none Procedure in detail & Post-procedure care: DESCRIPTION OF PROCEDURE Fluoroscopically guided, contrast-controlled right L4, L5 and S1 medial branch blocks with 0.5cc of 2% Lidocaine. Following review of allergy and review of potential side effects and complications, including, but not necessarily limited to, infection, allergic reaction, local tissue breakdown, nerve injury, paralysis, stroke and possible , the patient indicated that the patient understood and agreed to proceed. An informed consent document was signed by the patient, witnessed by a nurse, and placed in the patient's chart. After review of previous anaesthesic history and IV conscious sedation the patient was deemed safe to proceed with today?s procedure with IV conscious sedation as ASA class II designation. Safety time-out was performed to confirm patient ID, procedure to be performed and site of procedure. IV sedation was accomplished with a combination of 2mg of Versed was administered by the RN after DO order, titrated to patient comfort during the course of the procedure while the patient remained responsive to all verbal commands In the prone position, following sterile prep and drape of the lumbar region, the right L4, L5 and S1 anatomical location of the medial branch of the dorsal ramus was identified fluoroscopically. Subsequently an anesthetic skin wheal using 1% lidocaine solution was initiated at each of the anatomical spots. Subsequently then a 22-gauge 3.5-inch spinal needle was atraumatically introduced and advanced under fluoroscopic guidance at each of the corresponding sites at the right L4, L5 and S1 MB. After negative aspiration, 0.2 cc of Isovue 200 was injected, confirming placement without vascular or intrathecal uptake. Subsequently then 0.5 cc of 2% Lidocaine solution was injected at each of the corresponding sites at the right L4, L5 and S1 medial branch locations. The patient tolerated the procedure well without signs or symptoms of complications. The procedure tolerated the procedure well without signs or symptoms of complications prior to transfer to the recovery area continued monitoring without incident. Post-procedure, the patient was monitored initiating provocative activities to measure the amount of relief from block of the facetogenic pain. The patient reported a VAS of 7 prior to the procedure and a post-procedure VAS of 1. It has been a pleasure to assist in the diagnostic and therapeutic care of your patient. POST OP INSTRUCTIONS The patient was provided with a Pain Log to complete over the next several hours and subsequent days prior to the patient's follow up with the ordering physician. 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 The patient is aware, was provided, once again, with a Pain Log and will follow up with the referring physician for review and clinical correlation.
== END 2024-11-18 12:15 | disposition home or self-care (01) ==
PROVIDERS: PCP Physician Assistant Medical; Referring Provider Physical Medicine & Rehabilitation; Visit Provider Physical Medicine & Rehabilitation
DX: M47.816 Spondylosis without myelopathy or radiculopathy, lumbar region (principal)
CPT/HCPCS: 64493; 64494; 99152; J2250

== ENCOUNTER 2025-01-18 07:28 | Outpatient (CLI) | payer MEDICARE, OTHER, SELFPAY ==
[2025-01-18] VITALS (8 sets, daily range): BP systolic 114–127; BP diastolic 65–83; PULSE 55–63; RESP 16; TEMP 37; O2SAT 93–97
[2025-01-18] MEDS: MIDAZOLAM 2 MG/2 ML VIAL IV (08:34)
[2025-01-18] MEDS: LIDOCAINE 1% 20 ML 5 ML INJ (08:41)
--- NOTE | 2025-01-18 09:01 | P.PCN_ITS ---
Date/Time/Diagnoses Date of procedure: 01/18/25 Time of procedure: 09:02 Pre-procedure diagnosis: 1. RECALCITRANT FACET ARTHROPATHY Post-procedure diagnosis: same Procedure Notes Procedure: 1. RIGHT L4 AND L5 MEDIAL BRANCH RADIOFREQUENCY NEUROTOMY AND RIGHT S1 DORSAL RAMUS BRANCH RADIOFREQUENCY NEUROTOMY Indications: Derrick is referred by ANDRE Solitario for treatment of facet arthropathy. Physician: Edward Granados Total Fluoroscopy time (seconds): 12 Total sedation minutes: 23 Complications: none Procedure in detail & Post-procedure care: DESCRIPTION OF PROCEDURE Right L4 and L5 medial branch radiofrequency neurotomy and right S1 dorsal ramus branch radiofrequency neurotomy under fluoroscopy with conscious sedation. The patient is well known to this clinic having undergone previous facet injections with good but temporary relief. The patient has experienced appropriate, concordant relief with previous facet and median branch blocks but the patient's pain has been recalcitrant to further conservative measures. Therefore, based upon the patient's relief and persistent symptoms, the patient is considered an appropriate candidate for facet rhizotomy. All of the patient's questions regarding the risks versus benefits of the procedure, including, but not limited to, bleeding, infection, temporary as well as lasting nerve injury, paralysis, stroke, and , as well treatment alternatives were answered to satisfaction. After review of previous anaesthesic history and IV conscious sedation the patient was deemed safe to proceed with today?s procedure with IV conscious sedation as ASA class II designation. Safety time-out was performed to confirm patient ID, procedure to be performed and site of procedure. IV sedation was accomplished with a combination of 2mg of Versed was administered by the RN after DO order, titrated to patient comfort during the course of the procedure while the patient remained responsive to all verbal commands. After obtaining informed consent, denial of pertinent drug allergies, as well as being made aware of the potential risks of bleeding, infection, spinal cord trauma, paralysis, temporary and permanent nerve damage, seizure, stroke, and possible , the patient was brought to the fluoroscopy suite and positioned prone on the fluoroscopy table. The lumbar region was prepped with Betadine and covered with a fenestrated drape in the usual sterile fashion. Appropriate monitors applied including pulse oximeter, pulse, and blood pressure for regular monitoring throughout the procedure. After local infiltration using 1% lidocaine, under fluoroscopic guidance, a 10- cm RF insulated needle with a 10-mm active tip was positioned parallel to the junction of the right sacral ala and the superior articulating process where the S1 dorsal ramus resides. Needle placement was confirmed with sensory stimulation at 50 Hz, with motor stimulation of .5v on the right which produced local stimulation without radicular component. The stimulation was then increased to 2v with, once again, only local multifidus stimulation without radicular component. This was then followed by two discreet lesions performed at 80 degrees Celsius for 90 seconds each. The needle was then removed and the identical procedure was performed along the length of the right L5 medial branch with motor stimulation at .7v on the right. The identical procedure was once again performed along the length of the right L4 medial branch with motor stimulation of .5v on the right. The patient tolerated the procedure well without signs or symptoms of complications prior to transfer to the recovery area continued monitoring without incident. The patient was then transferred to the recovery area where they were observed for an appropriate period of time after the injection. The patient was then transferred to the recovery area where they were observed for an appropriate period of time after the injection. The patient reported a VAS score of 8 prior to the procedure and a post- procedure VAS of 0. POST OP INSTRUCTIONS The patient was provided a Pain Log to continue to record the patient's response to the target-specific procedure prior to the patient's follow-up visit with the referring physician. Additionally, specific post-injection care instructions and a contact number to our office were provided if concerns arise regarding possible complications associated with the procedure are suspected.
== END 2025-01-18 09:16 | disposition home or self-care (01) ==
LOC: RAD 07:29
PROVIDERS: PCP Physician Assistant Medical; Referring Provider Physical Medicine & Rehabilitation; Visit Provider Physical Medicine & Rehabilitation
DX: M47.816 Spondylosis without myelopathy or radiculopathy, lumbar region (principal); M47.817 Spondylosis without myelopathy or radiculopathy, lumbosacral region
CPT/HCPCS: 64635; 64636; 99152; 99153; J2250